=== PATIENT | female | born 1995 | race Caucasian/White ===

== ENCOUNTER 2021-01-19 15:41 | Emergency (ER) | payer MEDICAID ==
[~2021-01-19] VITALS: Ht 154.9 cm; Wt 70.0 kg
[2021-01-19 16:15] LABS: CLARITY URINE CLEAR (CLEAR); COLOR URINE YELLOW (YELLOW); KETONES URINE NEGATIVE (NEGATIVE); LEUKOCYTE ESTERASE URINE 1+ (NEGATIVE); NITRITE URINE NEGATIVE (NEGATIVE); OCCULT BLOOD URINE TRACE (NEGATIVE); PH URINE 5.5 (4.5-8.0); PROTEIN URINE NEGATIVE (NEGATIVE); SPECIFIC GRAVITY URINE 1.012 (1.005-1.030); UROBILINOGEN URINE 0.2 E.U./dL (0.2-1.0)
[2021-01-19] MEDS ORDERED: ACETAMINOPHEN 325MG TABLET PO ONE (16:15)
[2021-01-19 16:25] LABS: BASOPHILS % 0.2 % (0.0-2.0); EOSINOPHILS % 1.4 % (0.0-5.0); HEMOGLOBIN. 12.8 g/dL (12.0-16.0); LYMPHOCYTES % 23.1 % (20.0-50.0); MEAN CORPUSCULAR HEMOGLOBIN 27.5 pg (28.0-32.0); MEAN CORPUSCULAR VOLUME 81.9 fL (81.0-99.0); MEAN PLATELET VOLUME 9.5 fl (7.4-10.4); MONOCYTES % 7.1 % (2.0-8.0); NEUTROPHILS % 68.2 % (40.0-76.0); PLATELET 224 x1000/uL (130-400); RED BLOOD CELL COUNT 4.64 mill/uL (4.2-5.4); RED CELL DISTRIBUTION WIDTH 15.7 % (11.6-14.6)
[2021-01-19 16:32] LABS: CHLORIDE 109 mEq/L (98-107)
[2021-01-19 16:35] LABS: HCG SCREEN NEGATIVE
[2021-01-19 16:44] LABS: B-HCG QUANTITATIVE < 1 mIU/mL (<3)
[2021-01-19 18:55] VITALS: BP 130/78
== END 2021-01-19 18:55 | disposition home or self-care (01) ==
LOC: ER 15:41
DX: R10.9 Unspecified abdominal pain (principal); D69.3 Immune thrombocytopenic purpura
CPT/HCPCS: 36415; 80048; 81003; 81025; 84702; 84703; 85025; 99283

== ENCOUNTER 2021-08-26 16:29 | Emergency (ER) | payer BC, MEDICAID ==
[~2021-08-26] VITALS: Ht 165.1 cm; Wt 73.0 kg
[2021-08-26] MEDS ORDERED: ONDANSETRON HCL 4MG/2ML INJ IV ONE (16:30)
[2021-08-26] MEDS ORDERED: ACETAMINOPHEN 325MG TABLET PO ONE (16:45)
[2021-08-26] MEDS: FENTANYL CITRATE/PF 50MCG/ML 2ML VIAL IV ONE ×2 (17:06→18:32)
[2021-08-26 17:11] LABS: BASOPHILS % 0.6 % (0.0-2.0); EOSINOPHILS % 1.5 % (0.0-5.0); HEMATOCRIT. 35.3 % (36.0-48.0); HEMOGLOBIN. 11.7 g/dL (12.0-16.0); LYMPHOCYTES % 37.7 % (20.0-50.0); MEAN CORPUSCULAR HEMOGLOBIN 26.5 pg (28.0-32.0); MEAN CORPUSCULAR VOLUME 80.1 fL (81.0-99.0); NEUTROPHILS % 54.2 % (40.0-76.0); PLATELET 259 x1000/uL (130-400); RED BLOOD CELL COUNT 4.41 mill/uL (4.2-5.4); RED CELL DISTRIBUTION WIDTH 15.2 % (11.6-14.6)
[2021-08-26 17:20] LABS: CHLORIDE 110 mEq/L (98-107)
[2021-08-26 17:42] LABS: B-HCG QUANTITATIVE 3633 mIU/mL (<3)
[2021-08-26 17:59] LABS: CLARITY URINE CLOUDY (CLEAR); COLOR URINE YELLOW (YELLOW); KETONES URINE TRACE (NEGATIVE); LEUKOCYTE ESTERASE URINE NEGATIVE (NEGATIVE); NITRITE URINE NEGATIVE (NEGATIVE); OCCULT BLOOD URINE NEGATIVE (NEGATIVE); PROTEIN URINE NEGATIVE (NEGATIVE); SPECIFIC GRAVITY URINE 1.023 (1.005-1.030)
[2021-08-26] MEDS: MORPHINE SULFATE 4 MG/ML CPJ (NOT FOR IM USE) IV ONE ×2 (18:32→18:59)
[2021-08-26] MEDS ORDERED: ONDANSETRON HCL 4MG/2ML INJ IV PRN (22:30)
[2021-08-26] MEDS ORDERED: ACETAMINOPHEN 325MG TABLET PO PRN (22:30)
[2021-08-26] MEDS ORDERED: LACTATED RINGERS 1,000 ML IV SCH (23:00)
[2021-08-26] MEDS ORDERED: METHOTREXATE SODIUM/PF 50 MG/2 ML VIAL IM NR (23:00)
[2021-08-26 23:18] LABS: CHLORIDE 110 mEq/L (98-107)
[2021-08-27 11:06] VITALS: BP 108/61
== END 2021-08-27 11:07 | disposition home or self-care (01) ==
LOC: ER 16:29 → CANRESERV 08-27 07:19 → ENRESERV 08-27 07:19 → CANBEDREQ 08-27 10:30 → ER 08-27 11:07
DX: O26.891 Other specified pregnancy related conditions, first trimester (principal); R10.9 Unspecified abdominal pain; R11.2 Nausea with vomiting, unspecified; O98.511 Other viral diseases complicating pregnancy, first trimester; Z20.822 Contact with and (suspected) exposure to COVID-19; Z3A.01 Less than 8 weeks gestation of pregnancy
CPT/HCPCS: 36415; 76801; 76817; 80053; 81003; 82248; 84702; 85025; 86850; 86900; 86901; 87426; 96361; 96372; 96374; 96375; 99285; J2270; J2405; J9260; Z7610; 80076; J3010

== ENCOUNTER 2025-07-25 06:27 | Emergency (ER) | payer BC, MEDICAID ==
[~2025-07-25] VITALS: Ht 152.4 cm; Wt 77.0 kg
[2025-07-25 06:40] VITALS: O2SAT 99
[2025-07-25 07:02] LABS: PLATELET 331 x1000/uL (130-400); RED BLOOD CELL COUNT 4.03 mill/uL (4.2-5.4); RED CELL DISTRIBUTION WIDTH 18.2 % (11.6-14.6)
[2025-07-25 07:28] LABS: CREATININE 0.8 mg/dL (0.6-1.0); UREA NITROGEN BLOOD 15 mg/dL (9-23)
[2025-07-25 07:29] LABS: TROPONIN I HIGH SENSITIVITY < 4 ng/L (3.0-34)
[2025-07-25 07:30] LABS: ASPARTATE AMINOTRANSFERASE 25 IU/L (<34); BILIRUBIN DIRECT < 0.1 mg/dL (<=3.0); BILIRUBIN TOTAL 0.3 mg/dL (0.1-1.0)
[2025-07-25 07:31] LABS: PROTEIN TOTAL 7.3 g/dL (6.0-8.3)
[2025-07-25] MEDS: ONDANSETRON HCL 4MG/2ML INJ IV NR (07:35)
[2025-07-25] MEDS: PANTOPRAZOLE SODIUM 40 MG/VIAL IV NR (07:35)
[2025-07-25] MEDS: MORPHINE SULFATE 4 MG/ML INJ (FOR IV/IM USE) IV NR (07:36)
[2025-07-25 08:04] LABS: BASOPHILS % 0.3 % (0.0-2.0); EOSINOPHILS % 1.1 % (0.0-5.0); HEMATOCRIT. 26.3 % (36.0-48.0); HEMOGLOBIN. 7.9 g/dL (12.0-16.0); LYMPHOCYTES % 28.3 % (20.0-50.0); MEAN PLATELET VOLUME 8.7 fl (7.4-10.4); MONOCYTES % 5.3 % (2.0-8.0); NEUTROPHILS % 65.0 % (40.0-76.0); PLATELET 330 x1000/uL (130-400); RED BLOOD CELL COUNT 4.05 mill/uL (4.2-5.4); RED CELL DISTRIBUTION WIDTH 18.0 % (11.6-14.6)
[2025-07-25 08:07] LABS: ADD RBC MORPHOLOGY YES
[2025-07-25 08:09] VITALS: TEMP 36.7
[2025-07-25 08:11] VITALS: TEMP 98.06
[2025-07-25 08:16] LABS: HCG SCREEN NEGATIVE
[2025-07-25 08:22] LABS: CLARITY URINE TURBID (CLEAR); COLOR URINE YELLOW (YELLOW); GLUCOSE URINE NEGATIVE (NEGATIVE); KETONES URINE TRACE (NEGATIVE); PH URINE 5.0 (4.5-8.0); PROTEIN URINE 1+ (NEGATIVE); SPECIFIC GRAVITY URINE 1.031 (1.005-1.030)
[2025-07-25 08:23] LABS: LEUKOCYTE ESTERASE URINE 2+ (NEGATIVE); NITRITE URINE NEGATIVE (NEGATIVE); OCCULT BLOOD URINE NEGATIVE (NEGATIVE); UROBILINOGEN URINE 0.2 E.U./dL (0.2-1.0)
[2025-07-25 08:32] LABS: CREATININE 0.9 mg/dL (0.6-1.0); UREA NITROGEN BLOOD 15 mg/dL (9-23)
[2025-07-25] MEDS: KETOROLAC 30MG/ML VIAL IV NR (09:00)
[2025-07-25 09:04] LABS: SQUAMOUS EPITHELIAL CELL URINE 3+ /lpf (RARE/1+)
[2025-07-25 09:05] LABS: WBC URINE 0-2 /hpf (0-2)
[2025-07-25 09:05] LABS: PLATELET ESTIMATE NORMAL
[2025-07-25 09:06] LABS: BACTERIA URINE 3+; RBC URINE 0-2 /hpf (0-2)
[2025-07-25] MEDS ORDERED: NITR100C PO (09:24)
[2025-07-25] MEDS ORDERED: ONDA4TAB50 PO (09:24)
[2025-07-25] MEDS ORDERED: TOPUD PO (09:24)
[2025-07-25 09:35] LABS: *AMPHETAMINES SCREEN URINE NEGATIVE (NEGATIVE); *BARBITURATES SCREEN URINE NEGATIVE (NEGATIVE); *BENZODIAZEPINES SCREEN URINE NEGATIVE (NEGATIVE); *COCAINE SCREEN URINE NEGATIVE (NEGATIVE); CANNABINOID URINE SCREEN NEGATIVE (NEGATIVE); ECSTASY MDMA SCREEN URINE NEGATIVE (NEGATIVE); METHADONE URINE SCREEN NEGATIVE (NEGATIVE); OPIATES URINE SCREEN NEGATIVE (NEGATIVE); PHENCYCLIDINE URINE SCREEN NEGATIVE (NEGATIVE)
[2025-07-25 10:14] VITALS: BP 108/56; PULSE 67; RESP 18; O2SAT 100
== END 2025-07-25 10:16 | disposition home or self-care (01) ==
LOC: ER 06:27 → CMPBEDREQ 11:04
DX: N39.0 Urinary tract infection, site not specified (principal); K80.70 Calculus of gallbladder and bile duct without cholecystitis without obstruction; Z98.890 Other specified postprocedural states; Z79.899 Other long term (current) drug therapy
CPT/HCPCS: 99285; 96374; 96375; 76700; 71045; 96361; 80076; 80305; 80048; 81025; 84703; 83690; 85025; 84484; 36415; 93005; 85027; 81003; 82310; J1885; J2405; J2470; J2270; A4606